=== PATIENT | female | born 1990 | race Two or more races ===

== ENCOUNTER 2019-04-05 18:34 | Emergency (ER) | payer SELFPAY ==
[~2019-04-05] VITALS: Ht 157.5 cm; Wt 100.7 kg
[2019-04-05] MEDS ORDERED: DOXY100C2 PO (19:18)
--- NOTE | 2019-04-05 19:20 | PHYS DOC ---
Adult General Chief Complaint Chief Complaint: COUGH HPI HPI Patient is a 29-year-old female presents with 1 month of cough productive sputum green sputum used to use drugs but has stopped over last month. She feels warm fevers that time she is really not getting any better she had a nurse friend listen to her lungs thought there is fluid in them so came to the emergency room for evaluation. She still having sinus drainage as well no urinary symptoms no abdominal pain no vomiting Review of Systems Review of Systems Constitutional: Cardiovascular: No additional information not addressed in HPI [] GI: Denies abdominal pain, nausea, vomiting, bloody stools or diarrhea [] : Denies dysuria or hematuria [] Musculoskeletal: Denies back pain or joint pain [] Integument: Denies rash or skin lesions [] Neurologic: Denies headache, focal weakness or sensory changes [] Endocrine: Denies polyuria or polydipsia [] All other systems were reviewed and found to be within normal limits, except as documented in this note. Allergies Allergies Allergies Coded Allergies Type Severity Reaction Last Updated Verified No Known Drug Allergies 04/05/19 No Physical Exam Physical Exam Constitutional: Well developed, well nourished, no acute distress, non-toxic appearance. [] HENT: Normocephalic, atraumatic, bilateral external ears normal, oropharynx moist, no oral exudates, nose normal. [] Eyes: PERRLA, EOMI, conjunctiva normal, no discharge. [] Neck: Normal range of motion, no tenderness, supple, no stridor. [] Cardiovascular:Heart rate regular rhythm, no murmur [] Lungs & Thorax: There are rhonchi in the left lower lobe that do not clear after coughing] Abdomen: Bowel sounds normal, soft, no tenderness, no masses, no pulsatile masses. [] Skin: Scattered erythematous rash on the upper extremities Back: No tenderness, no CVA tenderness. [] Extremities: No tenderness, no cyanosis, no clubbing, ROM intact, no edema. [] Neurologic: Alert and oriented X 3, normal motor function, normal sensory function, no focal deficits noted. [] Psychologic: Affect normal, judgement normal, mood normal. [] EKG EKG [] Radiology/Procedures Radiology/Procedures [] Course & Med Decision Making Course & Med Decision Making Pertinent Labs and Imaging studies reviewed. (See chart for details) []I suspect pneumonia think patient warrants treatment noted vital signs are reassuring but she's been sick for over a month now. Very reliable and recurrent lung exam on my exam patient is a left lower lobe rhonchi prescription for doxycycline was provided. Return impressions discussed patient voiced unde rstanding of treatment of this likely atypical bacterial pneumonia. Dragon Disclaimer Dragon Disclaimer This electronic medical record was generated, in whole or in part, using a voice recognition dictation system. Departure Departure: Impression: Primary Impression: Pneumonia Disposition: HOME, SELF-CARE Condition: STABLE Referrals: PCP,NO (PCP) Scripts Doxycycline Hyclate (DOXYCYCLINE HYCLATE) 100 Mg Capsule 1 CAP PO BID for pneumonia, #20 CAP Prov: CHRISTOPHER WEINBERG MD 04/05/19 CHRISTOPHER WEINBERG MD Apr 05, 2019 19:20
[2019-04-05 19:30] VITALS: BP 119/81
== END 2019-04-05 19:31 | disposition home or self-care (01) ==
LOC: ER 18:34
DX: J18.9 Pneumonia, unspecified organism (principal)
CPT/HCPCS: 99283